=== PATIENT | male | born 1995 | race Two or more races ===

== ENCOUNTER 2020-09-13 16:12 | Emergency (ER) | payer MEDICAID ==
[~2020-09-13] VITALS: Ht 175.3 cm; Wt 61.2 kg
[2020-09-13 16:43] VITALS: BP 119/67
--- NOTE | 2020-09-13 16:51 | Emergency Room Report ---
History of Present Illness General Chief Complaint: Eye Problems Source: Patient Present Illness HPI 24-year-old male presents to the emergency department complaining of localized swelling, tenderness and stye that has pus coming out. Patient reports the styes on the upper left lid and states that he first began having symptoms April of last year. Patient reports the past week a new area on the lower lid of the left eye has begun to swell up become tender and have some erythema. Patient reports she did see a primary care doctor who stated that he had a chill lazy on and needs ophthalmology. Patient reports he is waiting on having preauthorization to see the specialist for surgical intervention. Patient is worried as he states that the lesion on the lower lid is been progressive and he does not want to see any bigger. He denies fevers or chills. He denies changes in vision or loss of vision. He denies trauma or fall. He denies increased lacrimation or foreign body sensation. No other aggravating or relieving factors at this time. Allergies: Coded Allergies: No Known Allergies (Unverified , 09/13/20) COVID-19 Screening Contact w/high risk pt: No Experienced COVID-19 symptoms?: No COVID-19 Testing performed PROTECTIVE SERVICES SOCIAL WORKER: No Patient History Past Medical History: see triage record Past Surgical History: none Pertinent Family History: none Reviewed Nursing Documentation: PMH: Agreed; PSxH: Agreed Nursing Documentation-PMH Past Medical History: No Stated History Review of Systems All Other Systems: negative except mentioned in HPI Physical Exam Vital Signs Date Time Temp Pulse Resp B/P (MAP) Pulse Ox O2 Delivery O2 Flow Rate FiO2 09/13/20 16:18 98.2 72 15 119/67 (84) 97 Room Air Sp02 EP Interpretation: reviewed, normal General Appearance: no apparent distress, alert, GCS 15, non-toxic Head: normocephalic, atraumatic Eyes: bilateral eye normal inspection, bilateral eye PERRL, bilateral eye EOMI, bilateral eye visual acuity - pt, wears glasses and forgot them but without: 20/40, bilateral eye other - Chalazion of the left lower lid. in addition to stye of the left upper lid. no FB on lid flip. No pain with EOMI testing. ENT: hearing grossly normal, normal voice Neck: full range of motion Respiratory: lungs clear, normal breath sounds, speaking full sentences Cardiovascular #1: regular rate, rhythm Musculoskeletal: gait/station normal, non-tender Neurologic: alert, motor strength/tone normal, oriented x3, sensory intact, responsive, speech normal Psychiatric: judgement/insight normal Skin: other - Chalazion of the left lower lid. in addition to stye of the left upper lid. Medical Decision Making PA Attestation Dr. Euceda is my supervising Physician whom patient management has been discussed with. Diagnostic Impression: Primary Impression: Chalazion left lower eyelid Additional Impression: Hordeolum externum left upper eyelid ER Course 24-year-old male presents to the emergency department complaining of localized swelling, tenderness and stye that has pus coming out. Patient reports the styes on the upper left lid and states that he first began having symptoms April of last year. Patient reports the past week a new area on the lower lid of the left eye has begun to swell up become tender and have some erythema. Patient reports she did see a primary care doctor who stated that he had a Chalazion on and needs ophthalmology. Patient reports he is waiting on having preauthorization to see the specialist for surgical intervention. Patient is worried as he states that the lesion on the lower lid is been progressive and he does not want to see any bigger. He denies fevers or chills. He denies changes in vision or loss of vision. He denies trauma or fall. He denies increased lacrimation or foreign body sensation. No other aggravating or relieving factors at this time. - Pt [reports/denies] Contact lens use. Ddx considered but are not limited to: Chalazion, stye, corneal abrasion, acute glaucoma, globe rupture, FB, Corneal Ulcer, conjunctivitis. Iridis Vital signs: are WNL, pt. is afebrile H&PE are most consistent with: Chalazion of the left lower lid. in addition to stye of the left upper lid. no FB on lid flip. No pain with EOMI testing. ORDERS: -None at this time the Dx is clinical ED INTERVENTIONS: none at this time. D/W pt. Ophthalmology follow up for definitive treatment. D/w pt. lid hygiene and warm compress techniques. DISCHARGE: At this time pt. is stable for d/c to home. Will provide printed patient care instructions, and any necessary prescriptions. Care plan and follow up instructions have been discussed with the patient prior to discharge. . Last Vital Signs Date Time Temp Pulse Resp B/P (MAP) Pulse Ox O2 Delivery O2 Flow Rate FiO2 09/13/20 16:43 98.2 15 119/67 97 Room Air 09/13/20 16:18 72 Disposition: HOME, SELF-CARE Condition: Stable Scripts Eyelid Cleanser Combination #3 (OCUSOFT LID SCRUB PLUS) 50 Ml Foam..ml. 1 APPLIC TP BID, #50 ML Prov: Apurva Mena 09/13/20 Bacitracin/Polymyxin B Sulfate (BACITRACIN-POLYMYXIN EYE OINT) 3.5 Gm Oint...g. 1 APPLIC OP TID, #3.5 GM Prov: Apurva Mena 09/13/20 Patient Instructions: Krysta Additional Instructions: Take medications as directed. Follow up with a Fitness Supervisor in 3-5 days, even if your symptoms have resolved. --Please review list of primary care clinics, if you do not already have a primary care provider Return sooner to ED if new symptoms occur, or current symptoms become worse. - Please note that this Emergency Department Report was dictated using [employer] skinner technology software, occasionally this can lead to erroneous entry secondary to interpretation by the dictation equipment. Apurva Mena Sep 13, 2020 16:51
[2020-09-13] MEDS ORDERED: OCUSOFT LID SCR50 ML TP (16:57)
[2020-09-13] MEDS ORDERED: BACITRACIN-POL3.5 GM OP (16:57)
--- NOTE | 2020-09-13 17:03 | NUR ---
ER DISCHARGE NOTE: Patient is cleared to be discharged per ERMD, pt is aox4, on room air, with stable vital signs. pt was given dc and prescription instructions, pt was able to verbalize understanding. pt is able to ambulate with steady gait. pt took all belongings.
== END 2020-09-13 17:00 | disposition home or self-care (01) ==
LOC: EMR 16:45
DX: H00.15 Chalazion left lower eyelid (principal); H00.014 Hordeolum externum left upper eyelid
CPT/HCPCS: 99282